=== PATIENT | female | born 1950 | race Two or more races ===

== ENCOUNTER 2023-07-13 15:51 | Emergency (ER) | payer OTHER ==
[~2023-07-13] VITALS: Ht 154.9 cm; Wt 91.0 kg
[2023-07-13] MEDS ORDERED: SODIUM CHLORIDE 0.9% 1,000 ML IV ONE ×2 (17:30→19:15)
[2023-07-13 17:44] VITALS: PULSE 100; RESP 18; O2SAT 96
[2023-07-13 18:12] LABS: Basophils # (auto) 0 10 ^3/uL (0-0.2); Basophils % (auto) 0.1 % (0.0-2.0); Eosinophils # (auto) 0.1 10 ^3/uL (0-0.8); Eosinophils % (auto) 0.5 % (0.0-7.0); Hematocrit 33.4 % (36.0-46.0); Hemoglobin 10.9 g/dL (12.2-16.2); Lymphocytes # (auto) 0.7 10 ^3/uL (0.4-5.4); Lymphocytes % (auto) 3.2 % (10.0-50.0); Mean Corpuscular Hemoglobin 28.8 pg (28.0-32.0); Mean Corpuscular Hgb Conc. 32.5 g/dL (32.0-36.0); Mean Corpuscular Volume 88.8 fL (80.0-100.0); Monocytes # (auto) 1.4 10 ^3/uL (0-1.3); Neutrophils # (auto) 20.5 10 ^3/uL (1.6-8.6); Neutrophils % (auto) 90.2 % (37.0-80.0); Red Blood Cells 3.76 10^6/uL (4.0-5.20); Red Cell Distribution Width 18.9 % (11.8-14.3); White Blood Cell 22.7 10^3/uL (4.4-10.8)
[2023-07-13 18:29] LABS: Alanine Aminotransferase 85 U/L (7-40); Albumin 3.2 g/dL (3.2-4.8); Alkaline Phosphatase 391 U/L (46-116); Anion Gap 11 (5-15); Aspartate Aminotransferase 108 U/L (13-40); BUN/Creatinine Ratio 28.1 (10.0-20.0); Blood Urea Nitrogen 78 mg/dL (9-23); Calcium 8.4 mg/dL (8.5-10.1); Carbon Dioxide 20 mmol/L (20-30); Chloride 87 mmol/L (98-107); Glucose 110 mg/dL (74-106); Potassium 5.4 mmol/L (3.5-5.1)
[2023-07-13 18:30] LABS: Bilirubin, Total 5.7 mg/dL (0.2-1.0); INR 2.89 (0.9-1.15); Partial Thromboplastin Time 45.6 SEC (24.5-34.5); Prothrombin Time 28.3 sec (9.3-11.8); Total Protein 5.6 g/dL (5.7-8.2)
[2023-07-13 18:52] LABS: Sodium 118 mmol/L (136-145)
[2023-07-13 19:25] VITALS: PULSE 84; RESP 20; O2SAT 90
[2023-07-13 21:05] LABS: Urine Bacteria MANY /hpf (None Seen); Urine Blood Negative /uL (Negative); Urine Clarity HAZY (Clear); Urine Color Yellow (Yellow); Urine Hyaline Cast FEW /lpf (0 - 2); Urine Mucus FEW (None Seen); Urine Protein, UAD 1+ (Negative); Urine Specific Gravity 1.016 (1.001-1.035); Urine Urobilinogen Normal (Negative); Urine WBC 4 /hpf (0 - 5)
[2023-07-13] MEDS ORDERED: metroNIDAZOLE 500MG/100ML 100 ML IV ONE (22:45)
[2023-07-13] MEDS ORDERED: cefTRIAXone 1GM/50ML D5W 50 ML IV ONE (22:45)
[2023-07-14 03:44] VITALS: BP 96/62; PULSE 106; RESP 24; TEMP 97.5; O2SAT 96
== END 2023-07-14 04:15 | disposition short-term general hospital (02) ==
LOC: ER 15:51 → EDBD 15:51 → ER 07-14 04:15
DX: K76.7 Hepatorenal syndrome (principal); I10 Essential (primary) hypertension; E11.9 Type 2 diabetes mellitus without complications; Z85.9 Personal history of malignant neoplasm, unspecified; Z98.890 Other specified postprocedural states; Z88.8 Allergy status to other drugs, medicaments and biological substances
CPT/HCPCS: 36415; 71045; 74176; 80053; 81001; 82140; 83605; 84484; 85025; 85610; 85730; 87040; 96361; 96365; 96367; 99291; J0696; J3490; J7030; 87077; 87186